=== PATIENT | male | born 1970 | race African-American/Black ===

== ENCOUNTER → 2016-11-07 | Day surgery (SDC) | payer OTHER ==
[2016-11-02 15:19] VITALS: Ht 175.3 cm; Wt 135.0 kg
[~2016-11-07] VITALS: Ht 175.3 cm; Wt 135.0 kg
[~2016-11-07] MED LIST: ASPI81TA28 PO; ENAL1TAB31 PO; HYDR25TA4 PO; LIDO 2%/EPINEPHRINE 1:100000 20 ML VIAL INFIL ONE; METO25TA56 PO; POTA20TA16 PO; PRAV20TA PO; SODIUM BICARBONATE 4.2% INJ 10 ML SYR IV ONE; TETRACAINE HCL (OPHTH) 60 DROPS/4 ML BTL OP ONE; TOBRAMYCIN/DEXAMETHASONE OPH OINT 3.5 GM TUBE TOP ONE; TRMCR130WC TOP; VERA240T20 PO
--- NOTE | 2016-11-07 11:51 | History and Physical: Surg Cnt ---
History & Physical Date Nov 07, 2016. Chief Complaint eyelid cyst, left eye History of Present Illness The patient is a 46 year old male with complaints of cyst of left eyelid. Past Medical/Surgical History hypertension, back pain, high cholesterol Additional History Hepatic Disease: No Endocrine Disorder: No Kidney Disease: No Hypertension: Yes Heart Disease: No Bleeding Tendencies: No Infectious Diseases: No Allergies Coded Allergies: No Known Allergies (Unverified , 11/02/16) Home Medications Scheduled Aspirin (Aspirin Ec), 81 MG PO QAM Enalapril Maleate (Vasotec), 1 TAB PO BID Hydrochlorothiazide (Hctz), 25 MG PO QAM Metoprolol Tartrate (Lopressor) (Lopressor), 25 MG PO BID Potassium Ext Rel (Klor-Con), 20 MEQ PO QAM Pravastatin (Pravachol ), 20 MG PO HS Triamcinolone Acet (Aristocort 0.1%), 1 APPL TOP BID Verapamil Sust Rel (Calan Sr Ext Rel), 240 MG PO BID Physical Examination Skin: warm/dry, no rash Eyes: normal inspection, EOMI, sclerae normal ENT: normal ENT inspection, pharynx normal Head: normocephalic, atraumatic Neck: supple, no adenopathy, trachea midline Respiratory/Chest: lungs clear, normal breath sounds, no respiratory distress Cardiovascular: regular rate, rhythm, no edema, no murmur Abdomen / GI: normal bowel sounds, non tender Back: normal inspection Extremities: normal inspection, normal range of motion Neurologic/Psych: no motor/sensory deficits, alert, normal reflexes, oriented x 3 Diagnosis Cyst of left eyelid ASA Classification: ASA Class II Plan of Treatment Stable to proceed with excision of cyst, left lower lid and medial canthus.
--- NOTE | 2016-11-07 12:13 | Discharge Instructions-SurgCtr ---
Discharge Instructions Visit Reason for Visit: Left Lid Cyst Discharge Discharge Diagnosis / Problem: cyst of eyelid Discharge Goals Goal(s): Decrease discomfort Activity Recommendations Activity Limitations: resume your previous activity Anesthesia . Post Anesthesia Instructions: If you have had General Anesthesia or IV Sedation: * Do not drive today. * Resume driving when surgeon permits. * Do not make important decisions or sign legal documents today. * Call surgeon for: 1. Temperature elevations greater than 101 degrees F. 2. Uncontrollable pain. 3. Excessive bleeding. 4. Persistent nausea and vomiting. 5. Medication intolerance (nausea, vomiting or rash). * For nausea and vomiting use only clear liquids such as: tea, soda, bouillon until nausea subsides, then gradually increase diet as tolerated. * If you have any concerns or questions, call your surgeon's office. If physician is unavailable and it is an emergency, call 911 or go to the nearest emergency room. . Instructions / Follow-Up Instructions / Follow-Up ACTIVITY RECOMMENDATIONS: * No limitations RETURN TO SCHOOL/WORK: * No limitations DIET: * No limitations (Resume previous diet) SPECIAL CARE INSTRUCTIONS: Call your doctor at with any concerns or problems. FOLLOW UP VISIT: Follow-up with Dr Pardo as needed. . Diet Recommendations Home Diet: resume previous diet Pending Studies Studies pending at discharge: no Medical Emergencies . Who to Call and When: Medical Emergencies: If at any time you feel your situation is an emergency, please call 911 immediately. . Non-Emergent Contact Non-Emergency issues call your: [employer] Machine Setter . . "Provider Documentation" section prepared by Deshawn Pardo.
[2016-11-07 12:15] VITALS: TEMP 36.9
--- NOTE | 2016-11-07 12:15 | [facility] Operative Report ---
Operative Report Diagnosis: 2 cysts of left lower lid (3mm and 5mm) , one cyst of left upper lid (4mm) Procedure: excision of above described cysts Complications: none I attest to the content of the Intraoperative Record and any orders documented therein. Any exceptions are noted below.
[2016-11-07 12:24] VITALS: BP 140/88; PULSE 55; O2SAT 99
== END | disposition home or self-care (01) ==
LOC: X.SURG 10:49
PROVIDERS: ATTEND Ophthalmology
DX: H02.825 Cysts of left lower eyelid (principal); H02.824 Cysts of left upper eyelid; I10 Essential (primary) hypertension; E78.00 Pure hypercholesterolemia, unspecified; Z79.899 Other long term (current) drug therapy

== ENCOUNTER 2024-03-04 05:46 | Observation (INO) ==
--- NOTE | 2024-03-03 09:34 | Anesthesiology Consultation ---
Date of Service March 03, 2024 Assessment & Plan (1) Encounter for pre-operative examination: Chart Review Chart Review: Acceptable Risk for Surgery (pending anesthesia review of unconfirmed EKG DOS ) and Patient NOT seen in Pre Admission Testing -Infectious Disease screening: Per PAT nursing assessment on 02/13/24. Patient resides at [facility]. No known infectious disease contacts in past 10 days or current infectious disease symptoms. No recent travel outside the country. Preop Covid testing 02/28/24= negative. Covid test will be 5 days old by DOS- Minor test ordered for DOS History Surgery Operation Date: 03/04/24 07:00 Proposed Procedures p Right Knee Arthroscopy, Chondroplasty, Partial Lateral Meniscus Removal - Triston Muñoz MD Height/Weight Height: 5 ft 9 in Weight: 148.778 kg Allergies Allergy/AdvReac Type Severity Reaction Status Date / Time No Known Allergies Allergy Unverified 02/13/24 14:44 Medications Home Medications Medication Instructions Recorded Confirmed Last Taken aspirin 81 mg capsule 81 mg PO QAM 02/13/24 02/13/24 Unknown atorvastatin 20 mg tablet 20 mg PO PM 02/13/24 02/13/24 Unknown calcium polycarbophil 625 mg 1,250 mg PO QAM 02/13/24 02/13/24 Unknown tablet (Fiber-Lax) lisinopril 20 1 tab PO QAM 02/13/24 02/13/24 Unknown mg-hydrochlorothiazide 25 mg tablet potassium chloride 20 mEq 20 meq PO QAM 02/13/24 02/13/24 Unknown tablet,extended release(part/cryst) verapamil 240 mg tablet,extended 240 mg PO BID 02/13/24 02/13/24 Unknown release Past Medical History Medical History (Updated 03/03/24 @ 09:36 by Evie Law PA-C) Hyperlipidemia Hypertension Inmate in correctional facility [facility] Medical history unknown unable to view history in paperwork sent from [facility] due to poor quality, see scanned in reports ALISON (obstructive sleep apnea) Per records Past Surgical History Surgical History Surgical history unknown unable to view history in paperwork sent from [facility] due to poor quality, see scanned in reports Social History Smoking Status: Unknown if ever smoked Testing Laboratory Results 02/28/24= WBC: 7.23 H/H: 16.7/49.9 PLATELETS: 274 SODIUM: 141 POTASSIUM: 4.0 CHLORIDE: 105 CO2: 27 BUN: 13 CREATININE: 0.92 GLUCOSE: 117 Electrocardiogram Date: 02/27/24 Findings: + SB @ (57bpm) Nonspecific T wave abnormality unconfirmed - will need reviewed by anesthesiologist DOS Chest X-Ray Date: 02/27/24 Findings: + NAD and + cardiomegaly
[2024-03-04] MEDS: LR 15ML/HR IV SCH (06:13)
[2024-03-04] MEDS: LACTATED RINGER'S 1,000 ML IV SCH (06:24)
[2024-03-04] MEDS ORDERED: PROMETHAZINE HCL 6.25 MG in SODIUM CHLORIDE 0.9% 50 ML IV PRN (06:28)
[2024-03-04] MEDS ORDERED: ePHEDrine sulfate 50 MG/ML AMP IV PRN (06:28)
[2024-03-04] MEDS ORDERED: ONDANSETRON INJ 2 MG/ML 2 ML VIAL IV PRN (06:28)
[2024-03-04] MEDS ORDERED: ATROPINE SULFATE 0.1 MG/ML 10ML SYR IV PRN (06:28)
[2024-03-04] MEDS ORDERED: NALOXONE HCL 0.4 MG/1 ML VIAL/CARP IV PRN ×2 (06:28→11:35)
[2024-03-04] MEDS ORDERED: FLUMAZENIL 0.1 MG/1 ML 10 ML VIAL IV PRN (06:28)
[2024-03-04] MEDS ORDERED: LABETALOL HCL IV 5 MG/ML 20ML IV PRN (06:28)
[2024-03-04] MEDS ORDERED: SUCCINYLCHOLINE CHLORIDE 20 MG/ML 10 ML VIAL IV ONE (06:34)
[2024-03-04] MEDS ORDERED: ROCURONIUM BROMIDE 10 MG/ML 5 ML VIAL IV ONE (06:34)
[2024-03-04] MEDS ORDERED: fentaNYL citrate PF 100 MCG/2 ML VIAL ONE (06:34)
[2024-03-04] MEDS ORDERED: LIDOCAINE 2% 2 ML VIAL/AMP(20MG/ML) INFIL ONE (06:34)
[2024-03-04] MEDS ORDERED: PROPOFOL IV EMULSION 10 MG/ML 20 ML VIAL IV ONE ×3 (06:34→08:55)
[2024-03-04] MEDS ORDERED: ONDANSETRON INJ 2 MG/ML 2 ML VIAL ONE (06:34)
[2024-03-04] MEDS ORDERED: MIDAZOLAM HCL 1 MG/ML 2ML VIAL ONE (06:34)
--- NOTE | 2024-03-04 07:02 | History & Physical Bridge Note ---
Date of Service March 04, 2024 History & Physical Bridge Note I have examined the patient, reviewed the History & Physical and in the interval since the performance of the History & Physical I have noted the following changes of clinical significance: no changes noted
[2024-03-04] MEDS: ceFAZolin 3000MG 3,000 MG/72.5 ML BAG IV SCH (07:05)
[2024-03-04] MEDS ORDERED: GLYCOPYRROLATE 0.2 MG/ML VIAL ONE (07:54)
[2024-03-04] MEDS: LIDOCAINE 1%/EPINEPHRINE 1:100,000 20 ML VIAL ONE (07:56)
[2024-03-04] MEDS ORDERED: SUGAMMADEX SODIUM 200 MG/2 ML VIAL IV ONE (08:51)
[2024-03-04] MEDS: EpINEphrine HCL INJ 1 MG/ML 1ML SYRINGE IR ONE (08:55)
--- NOTE | 2024-03-04 09:14 | Operative Report ---
Post Operative Report Pre & Post Diagnosis Operation Date: 03/04/24 07:00 Pre-Op Diagnosis: Tear of Lateral Meniscus, Right Knee Post-Op Diagnosis: Tear of Lateral Meniscus, Right Knee I identified the patient and participated in the time-out.: Yes Procedure Operation Date: 03/04/24 07:00 Actual Procedures p Right Knee Arthroscopy, Chondroplasty, Partial Lateral Meniscus Removal, Bone Spur Excision(Right) - Triston Muñoz MD Surgeon Triston Muñoz M.D. Portrait Painter Domenica Marie PA-C; no fellow or resident available Estimated Blood Loss 5 Findings Consistent with Post-Op Diagnosis Specimens None Anesthesia Type General Description of Procedure Patient was taken to the operating room, placed under general anesthesia. Time out performed, prepped and draped in routine sterile fashion. He was given 3 gm IV Ancef for surgical prophylaxis. I was present for the entire case, please see Dr. Muñoz's operative report for further detail. Patient was awakened and taken to the operating room in stable condition. I attest to the content of the Intraoperative Record and any orders documented therein. Any exceptions are noted below.
[2024-03-04] MEDS: fentaNYL citrate PF 100 MCG/2 ML VIAL IV PRN (09:17)
--- NOTE | 2024-03-04 09:19 | Operative Report ---
Post Operative Report Pre & Post Diagnosis Operation Date: 03/04/24 07:00 Pre-Op Diagnosis: Tear of Lateral Meniscus, Right Knee Post-Op Diagnosis: Tear of Lateral Meniscus, Grade 4 chondrosis lateral tibial plateau, grade 2 and 3 chondrosis lateral femoral condyle. Osteophytosis. Synovitis. Medial femoral condyle chondromalacia. Grade 2Right Knee I identified the patient and participated in the time-out.: Yes Procedure Operation Date: 03/04/24 07:00 Actual Procedures p Right Knee Arthroscopy, Chondroplasty, Partial Lateral Meniscus Removal, Bone Spur Excision(Right) - Triston Muñoz MD Surgeon Triston Muñoz MD Machine Cementer Domenica Marie no resident or fellow available Estimated Blood Loss 5 Findings Consistent with Post-Op Diagnosis Specimens None Anesthesia Type General Regional Complications none Disposition Accompanied Patient To Recovery: No Disposition: Recovery Room Indications Patient is 53 years old and has right knee pain. He has a torn lateral meniscus with some lateral compartment chondromalacia. He is incarcerated. Treatment options were discussed and we agreed to proceed with a knee arthroscopy and debridement. Description of Procedure Informed consent obtained. Patient identified. He identified the operative site as the right knee. I marked with my initials. A preoperative surgical timeout performed. Preop dose of IV antibiotics given. Taken to the OR positioned supine on the OR table. No tourniquet. A lateral post was used for stressing the knee. A bump under the right hip. Impulse foot pumps on the nonoperative leg. Postop early mobility mechanical devices and Eliquis. The exam under anesthesia revealed range of motion 0/5/125 with intact Romeo and posterior drawer small effusion. Varus valgus laxity at 0 degrees was absent. There was 1+ LCL laxity at 20 degrees knee flexion. Bony prominences inspected and padded. Inferolateral viewing portal superior lateral outflow portal and inferomedial working portals were established. Diagnostic arthroscopy was performed. Mild synovitis in the suprapatellar pouch which was debrided. The central portion of the trochlea showed grade 1 chondrosis. There was grade 2 or 3 chondrosis of the inferomedial patellar facet. There was grade 2 chondrosis of the median ridge of the patella which was debrided. Approximately 1 to 1-1/2 cm in diameter far both areas. The medial lateral gutters were unremarkable. Popliteal hiatus intact. The retropatellar fat pad was resected. There was a large lateral notch osteophyte which was eventually debrided. This caused impingement. Care was taken to preserve the cruciate ligaments which were intact. There was also a large medial tibial spine osteophyte. This went from the medial compartment and actually over top of the ACL. This had a lip anteriorly and in combination with the notch osteophyte appeared to limit extension. I carefully used the shaver and bur to debride this osteophyte preserving the ACL as well as the anterior horn of the medial meniscus. Impingement was relieved and possibly extension improved. Osteophyte was large enough that it would precluded access to the medial compartment. The medial compartment was entered. The meniscal roots were intact the medial meniscus was intact and stable to probing. The medial tibial plateau appeared normal. There was a small area of grade 2 chondrosis of the medial femoral condyle which was about 1 cm wide and 1-1/2 cm long. Chondroplasty performed. The posterior medial compartment was accessed and there were no loose bodies. There was a flap of the medial meniscus which was insignificant and the medial meniscal root was intact. Posterior lateral compartment unremarkable. The posterior horn of the lateral meniscus was intact. Adjacent to the lateral tibial spine was a incarcerated ossicle which was debrided. Popliteal hiatus normal. The posterior portion of the lateral meniscus out to just in front of the popliteal hiatus appeared normal. There was grade 2 chondrosis of an area approximately 2-1/2 x 2-1/2 cm of the lateral portion of the lateral femoral condyle. Otherwise intact cartilage. On the tibial plateau there was an area posteriorly were there appeared to be an intralesional osteophyte 5 mm x 1 cm. The anterolateral portion of the tibial plateau for diameter of 2.5 to 3 cm was essentially grade 4 chondrosis. There was a macerated tear of the anterior horn of the lateral meniscus which was debrided with basket forceps and motorized shaver. The shaver was run through the knee to pick and shovel man debris. The arthroscopic instruments were removed. The portals were closed with 4-0 nylon. In order to protect the anterior horn of the medial meniscus I made an accessory medial po rtal and inserted a probe to retract the meniscus out of the way when debriding the medial tibial spine osteophyte. A saw sterile dressing was applied Xeroform 4 x 4's ABD soft wrap Joe wrap. Patient was awakened from anesthesia without difficulty and taken to the recovery room in stable condition. There were no specimens or complications counts were correct blood loss is estimated to be 5 cc. No no one was available to speak to at the conclusion of the procedure. Patient is incarcerated. Plan is to admit to the hospital overnight. Start Eliquis tomorrow morning. He may weight-bear as tolerated with crutches. Pain control. PT and OT. Arthroscopic partial meniscectomy protocol. Debridement of the osteophytes relieve impingement and may have improved extension. I attest to the content of the Intraoperative Record and any orders documented therein. Any exceptions are noted below.
[2024-03-04] MEDS: HYDROmorphone INJ 1 MG/ML SYRINGE IV PRN (09:40)
--- NOTE | 2024-03-04 10:21 | Anesthesiology Progress Note ---
Date of Service March 04, 2024 Anesthesia Post Procedure Vital Signs Vital Signs: Temp Pulse Pulse Resp BP BP Pulse Ox 03/04/24 10:10 74 19 150/82 H 98 03/04/24 10:00 36.2 C L 71 19 150/84 H 98 03/04/24 09:50 72 19 145/85 H 98 03/04/24 09:40 75 20 161/87 H 96 03/04/24 09:30 73 20 142/83 H 97 03/04/24 09:20 82 19 154/91 H 99 03/04/24 09:14 36.0 C L 82 17 138/89 98 03/04/24 06:12 36.7 C 59 L 20 156/102 H 94 O2 Del Method O2 Flow Rate 03/04/24 10:10 Nasal Cannula 2 03/04/24 10:00 Nasal Cannula 2 03/04/24 09:50 Nasal Cannula 2 03/04/24 09:40 Nasal Cannula 2 03/04/24 09:30 Nasal Cannula 2 03/04/24 09:20 Oxymask 5 03/04/24 09:14 Oxymask 5 03/04/24 06:12 Room Air Pain Intensity Right Knee: Pain Intensity: 6 Transfer of Care Handoff Completed per policy Notes Mental Status: alert / awake / arousable Patient Amnestic to Procedure: Yes Nausea / Vomiting: adequately controlled Pain: adequately controlled Airway Patency, RR, SpO2: stable & adequate BP & HR: stable & adequate Hydration State: stable & adequate Anesthetic Complications: no major complications apparent
[2024-03-04] MEDS: ONDANSETRON INJ 2 MG/ML 2 ML VIAL IV PRN (11:05)
[2024-03-04] MEDS ORDERED: TAMSULOSIN HCL 0.4 MG CAP PO PRN (11:35)
[2024-03-04] MEDS ORDERED: HYDROmorphone INJ 1 MG/ML SYRINGE IV PRN (11:35)
[2024-03-04] MEDS ORDERED: diphenhydrAMINE 50 MG/ML VIAL IV PRN (11:35)
[2024-03-04] MEDS ORDERED: MAGNESIUM HYDROXIDE SUSP 30 ML UDC PO PRN (11:35)
[2024-03-04] MEDS ORDERED: CALCIUM POLYCARBOPHIL 625MG TAB PO PRN (11:35)
[2024-03-04] MEDS ORDERED: HYDROmorphone INJ 0.5 MG/0.5 ML SYR IV PRN (11:35)
[2024-03-04] MEDS ORDERED: hydrALAZINE HCL 20 MG/ML VIAL IV PRN (11:35)
[2024-03-04] MEDS ORDERED: bisacodyL 10 MG SUPP PR PRN (11:35)
[2024-03-04] MEDS: ONDANSETRON INJ 2 MG/ML 2 ML VIAL ONE (11:39)
[2024-03-04] MEDS: SODIUM CHLORIDE 0.9% 1,000 ML IV SCH (11:59)
[2024-03-04] MEDS: KETOROLAC 30 MG/ML VIAL IV SCH (12:07)
[2024-03-04] MEDS: METOCLOPRAMIDE HCL INJ 5 MG/ML 2 ML VIAL IV PRN (14:19)
[2024-03-04] MEDS: ceFAZolin 2000MG 2,000 MG/15 ML SYR IV SCH (14:27)
[2024-03-04] MEDS: ACETAMINOPHEN 500 MG TAB PO SCH (14:27)
--- OUTSIDE RECORDS SUMMARY | 2024-03-04 14:59 | External Medical Summary | Continuity of Care Document ---
Author Name Unknown Organization [facility] [address] [id number] Address [address] [place] [id number] Care Team Providers Care Messenger Floorperson Name Role Phone Ward Talavera Primary Care Physician [phone] [id number] Date(s): 02/21/24 - 02/21/24 [facility] [address] [id number] [facility] [address] [place] [id number] Encounter Diagnosis Arthrosis of knee(Discharge Diagnosis) - 02/21/24 Complex tear of lateral meniscus, current injury, right knee, initial encounter (Discharge Diagnosis) - 02/21/24 Preop testing(Discharge Diagnosis) - 02/22/24 Discharge Disposition: Home or Self Care Attending Physician: STEPAN Marie, Domenica Villatoro Referring Physician: MD Wanda, Triston Sheikh Allergies, Adverse Reactions, Alerts No Known Medication Allergies Medications ammonium lactate 12% topical cream Start: 08/07/23 10:59:00 EDT Start Date: 08/07/23 Status: Ordered aspirin 81 mg oral capsule Start: 08/07/23 10:59:00 EDT Start Date: 08/07/23 Status: Ordered atenolol Start: 08/07/23 11:00:00 EDT Start Date: 08/07/23 Status: Ordered atorvastatin 20 mg oral tablet Start: 08/07/23 11:00:00 EDT Start Date: 08/07/23 Status: Ordered FiberCon Start: 08/07/23 11:01:00 EDT Start Date: 08/07/23 Status: Ordered hydroCHLOROthiazide-lisinopril 25 mg-20 mg oral tablet Start: 08/07/23 10:59:00 EDT, 2 tab, PO, Daily Start Date: 08/07/23 Status: Ordered triamcinolone 0.025% topical cream Start: 08/07/23 10:58:00 EDT, 1 appl, topical, bid Start Date: 08/07/23 Status: Ordered verapamil Start: 08/07/23 11:01:00 EDT Start Date: 08/07/23 Status: Ordered Mental Status 02/21/24 Barriers to Learning one year None evide nt Mandatory Health Literacy Documentation Yes Health Literacy Communication Barriers N ever Primary Language Sammarinese Problem List Condition Confirmation Course Effective Dates Status Health St atus Informant Arthrosis of knee Confirmed Active Lateral meniscal tear Confirmed Active Diagnosis Diagnosis Type Effective Dates Health Status Cl inical Service Informant Complex tear of lateral meniscus, current injury, right knee, initial encounter Discharge Diagnosis 02/21/24 Arthrosis of knee Discharge Diagnosis 02/21/24 Preop testing Discharge Diagnosis 02/22/24 Non-Specified Vital Signs Most recent to oldest [Reference Range]: 1 Height 177 cm (02/21/24 2:02 PM) Patient Weight 152 kg (02/21/24 2:02 PM) Body Mass Index 48.52 kg/m2 (02/21/24 2:02 PM) Temperature [36.5-37.9 DegC] 36.3 DegC *LOW* (02/21/24 2:02 PM) Respiratory Rate 20 br/min (02/21/24 2:02 PM) Blood Pressure 124/84mmHg (02/21/24 2:02 PM) Cuff Pulse Pressure 40 mmHg (02/21/24 2:02 PM) Social History Social History Type Response Smoking Status Never smoked cigaret baljeet Sex Male Pre-OP H & P * STEPAN Boothe Cory D: PERFORM, MODIFY Event Display: Pre-OP H & P Authored Date: PRE-OPERATIVE HISTORY AND PHYSICAL Name: GARY AMARO Patient Number: [id number] : 1970 Date of Service: 02/21/2024 PRE-OP Diagnosis: Right knee DJD, lateral meniscal tear Planned Procedure: Right knee arthroscopy, chondroplasty, and partial lateral meniscectomy Chief Complaint: Right knee pain History of Present Illness (including history relevant to procedure): This 53-year-old male presents today for his preoperative history and physical. He is scheduled to undergo a right knee arthroscopy, chondroplasty, and partial lateral meniscectomy on 03/04/2024. The patient has had right knee pain for the last 3 to 4 years. Symptoms started after walking in the exercise yard and stepping in a small ditch, twisting his knee. Pain has persisted with any rotation or uneven ground. He denies any catching or locking. No buckling. No numbness or tingling. Intermittent knee effusions. He has triedactivity modification, physical therapy, OTC medications, and knee aspiration, without lasting improvement. He now elects to proceed with surgical intervention in hopes of improving his pain and function. Preoperative imaging has been obtained. Review Of Systems: A total of 10 systems were reviewed and are significant only for below stated conditions Family history: Noncontributory. Parents are living. Social history: The patient is currently incarcerated. No tobacco use, no EtOH use. No drug use. Past Medical History: Problems: Lateral meniscal tear Arthrosis of knee Obesity Sleep apnea Elevated cholesterol Hypertension Low back pain Procedure History Procedure Procedure Date Comments Herniorrhaphy Allergies and Sensitivities: No Known Medication Allergies Current Home Meds: (Last Updated 02/20 14:02) ammonium lactate topical (ammonium lactate 12% topical cream) aspirin (aspirin 81 mg oral capsule) atenolol atorvastatin (atorvastatin 20 mg oral tablet) hydroCHLOROthiazide-lisinopril (hydroCHLOROthiazide-lisinopril 25 mg-20 mg oral tablet) 2 tab PO Daily polycarbophil (FiberCon) triamcinolone topical (triamcinolone 0.025% topical cream) 1 appl topical bid verapamil Vitals: Last Updated 02/21/24 14:02 Weights: Last Updated 02/21/24 14:02 Date Temp Pulse BP RR SpO2 FIO2 Date Wt(kg) Wt(lb) 02/20 14: 36.3 124/84 20 94 02/20 14: 152.0 334 02/20 14: 152.0 334 24 Hr Tmax: 36.3 at 02/20 14:02 Initial Wt: 02/20 152.0 kg 334 lb Physical Exam: (relevant to the procedure, including heart and lung evaluation) General: Well-developed, well-nourished, large male, in no acute distress. Sitting in a chair. Alert and oriented. HEENT: Normocephalic, atraumatic. Eyes PERRLA, EOMI. Nares patent bilaterally without nasal drainage. Oropharynx with moist oral mucosa. Good dentition with dental fillings and caps. Good airway. Neck: No JVD. Cardiac: RRR. No MGR. Peripheral pulses are 2+. He does have generalized peripheral edema in the legs. Lungs: Clear to auscultation bilaterally. No crackles, rhonchi, or wheezing. Good air movement. Abdomen: Obese. Bowel sounds present x 4. Soft nontender. No organomegaly. No masses. Extremities: Right knee evaluation reveals no obvious asymmetry or deformity. He has full terminal extension. Flexion to greater than 100 degrees. Strength is 5/5 with excellent quad tone. There is focal discomfort with palpation over the medial and lateral joint lines. No peripatellar discomfort today. No current palpable crepitus. Stable collateral ligaments. No defect or discomfort with palpation over the patellar tendon or quadriceps tendon. There is medial and lateral joint line discomfortwith circumduction testing. Ambulating today with a slow shuffling gait secondary to ankle cuffs. Neuro: Gross sensation is intact across the upper and lower extremities by soft touch. Skin: _Warm and dry with good turgor. No rashes. No ecchymosis or erythema. He does have peripheraledema present in both lower extremities. Studies of radiology results (relevant to the procedure): MRI imaging previously obtained shows intact cruciate and collaterals. Lateral meniscus degenerative tear changes as well as lateral compartment chondrosis were noted. 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 Postoperative prescriptions for Eliquis and [place] will be sent to the community hospital. He will obtain crutches from the community hospital as well. Informed written consent was obtained today. PDMP was checked and there are no concerning findings. He is currently asymptomatic of any COVID-19 symptoms. Preoperative CBC and PRP will be ordered. Postop follow-up appointment for suture removal has been made with Dr. Muñoz for 03/19. He is currently listed as 23-hour observation but may be changed to same-day surgery depending on extent of surgery and start time. This dictation has been completed using [employer] text voice recognition software. Grammatical errors, omissions, insertions, and misspellings may be present due to the limitations of the software. Electronic Signature on File Electronically Reviewed/Signed by: Alexander Boothe PA-C Author Signature Dt/Tm:02/21/2024 05:23 PM Division of Sports Medicine Electronically Reviewed/Signed by: Triston Muñoz MD Cosigner Signature Dt/Tm: 02/21/2024 05:25 PM Division of Sports Medicine CDS Patient Care team information Care Team Personnel Name: MD Ilan, Ward Escudero Position: Referring Member Role: Primary Care Provider Address: Address: [address] [place] [address]
--- OUTSIDE RECORDS SUMMARY | 2024-03-04 15:00 | External Medical Summary | Continuity of Care Document ---
Author Name Unknown Organization [facility] [address] [id number] Address [address] [place] [address] [phone] Care Team Providers Care Tire Mold Tester Name Role Phone Ward Talavera Primary Care Physician [phone] [id number] Date(s): 10/29/23 - 10/29/23 [facility] [address] [id number] [address] [address] Encounter Diagnosis Lateral meniscal tear(Discharge Diagnosis) - 10/29/23 Arthrosis of knee(Discharge Diagnosis) - 10/29/23 Discharge Disposition: Home or Self Care Attending Physician: MD Wanda, Triston Sheikh Referring Physician: DO De Souza Andrew J Allergies, Adverse Reactions, Alerts No Known Medication [...] Start Date: 08/07/23 Status: Ordered Mental Status 10/29/23 Barriers to Learning one year None evide nt Mandatory Health Literacy Documentation Yes Health Literacy Communication Barriers N ever Primary Language Northern Irish Problem List Condition Confirmation Course Effective Dates Status Health St atus Informant Arthrosis of knee Confirmed Active Lateral meniscal tear Confirmed Active Diagnosis Diagnosis Type Effective Dates Health Status Cl inical Service Informant Lateral meniscal tear Discharge Diagnosis 10/29/23 Arthrosis of knee Discharge Diagnosis 10/29/23 Social History Social History Type Response Smoking Status Never smoked cigaret baljeet Sex Male Ortho Outpt Note * Gamaliel aLrkin: PERFORM, MODIFY, MODIFY, MODIFY MD Wanda, Triston Sheikh: MODIFY Event Display: Ortho Outpt Note Authored Date: [id number] Name:GARY AMARO Patient Number:[id number] :[id number] Date of Service:10/29/2023 Chief Complaint 2.5 month follow up for right knee pain History of Present Illness This is a 53-year-old male who is coming in for follow up for right knee pain. He was in prisonwhenhis initial injury occurred 3 years ago, whenhe missed stepped on some uneven floorsand felt a pop in his right knee. Hedid not notice any immediate swelling or bruising but later that nighthad some pain. Since them he has had pain and stiffness along the anterior medial and lateral a spects of his knee. He does not currently take any medications for itabout a year ago had a fewphysical therapy sessions related some stretching. Does not have any numbness or tingling of the right knee. He was wearing an Joe bandage for but not wearing a brace right now. Had an MRI donein May 2023. He had a cortisone injection at his last appointment with drainage of 15cc ofblood tinged fluidon 08/07/2023. Relief from this injection was limitedto a few weeks. Physical Exam Vitals & Measurements HT:177cm WT:152kg WT:152.000kg(Dosing) BMI:48.52 Focusing on the patient's RIGHT knee: Patient hastrace swellingalong the aspect of theright kneeno erythema or gross deformity, chronic skin changes b/lwith +1 tibial edema. No open wounds DP nonpalpable & PT 1+ Valgus alignment of both knees 5/5 Strength His range of motion is 0/5/110 Painless hip movement. Ligamentous exam stablecruciates and collaterals Tender to palpation along the anterioraspect of his knee as well as the lateralmore so than andmedial joint line. Negative Lachmannegative posterior and anterior drawer test with firm endpoints Flexion circumduction test causes pain on both sides of his knee. Diagnostic Results 4 views of the right knee from 08/07/2023 reviewed by me shows Eyota Schlatter ossification of right knee, medial and lateral joint space narrowing b/l, no signs of fracture, arthritics changes around femoral condyle MRI of Right Knee: intact ACL PCL LCL and MCL, degeneration of lateral meniscusand lateral compartment chondrosis Assessment/Plan IMPRESSION: Right knee pain secondary to lateral meniscus tear and lateral compartment chondrosis PLAN: Discussed ORTIZ injections versus Meniscus debridement surgery. The patient has elected to proceed with surgical interventionat this time for chondroplasty and partial lateral meniscus removal. Patient was educated about surgical procedure, and treatment options were discussed, as well as risks, benefits and the recovery process. The patient hasno issues withbleeding, blood clots, staph infections or MRSA. No metal allergy. Informed consent was obtained, and the patient signed a consent form. RICE, knee brace. Follow up for preoperative appointments as needed. Attestation I, Gamaliel Larkin, have scribed for, and in the presence of, Triston Muñoz, on this date,10/29/2023 15:29:05. Electronic Signature on File Electronically Reviewed/Signed by: Gamaliel Larkin Author Signature Dt/Tm:10/29/2023 03:54 PM Electronically Reviewed/Signed by: Triston Muñoz MD Cosigner Signature Dt/Tm: 10/30/2023 09:45 AM Division of Sports Medicine [facility] Patient Care team information Care Team Personnel Name: MD Talavera Vernon H Position: Referring Member Role: Primary Care Provider Address: Address: [address] [place] [address]
[2024-03-04] MEDS: ATORVASTATIN 20 MG TAB PO SCH (21:37)
[2024-03-04] MEDS: VERAPAMIL HCL 240 MG TABCR PO SCH (21:38)
[2024-03-05] MEDS: oxyCODONE HCL IR 5 MG TAB (IMMEDIATE RELEASE) PO PRN (07:49)
[2024-03-05] MEDS: APIXABAN 2.5 MG TAB PO SCH (08:42)
[2024-03-05] MEDS: POTASSIUM CHLORIDE CRTAB 20 MEQ TABCR PO SCH (08:43)
[2024-03-05] MEDS: LISINOPRIL/HCTZ 20/25MG 1 TAB PO SCH (08:43)
[2024-03-05] MEDS: ASPIRIN 81 MG ECTAB PO SCH (08:43)
[2024-03-05] MEDS: MULTIVITAMIN TAB PO SCH (08:44)
--- NOTE | 2024-03-05 09:05 | Orthopedic Progress Note ---
Date of Service March 05, 2024 Assessment & Plan (1) Arthritis of knee, right: Plan: Surgical findings discussed. Doing well. Will see PT and OT this morning. He may weight-bear as tolerated with crutches or walker. I reviewed the plan with him. Elevate ice. Pain medication. He will be on a blood thinner plus his regular meds. Dressing changes and wound care discussed. He should go to the [facility]. If doing well after rehab today will discharge back to his facility and follow-up with me in 2 weeks as scheduled. Exercises reviewed. (2) Lateral meniscal tear: Admission and Anticipated Discharge Date Admission Date: March 04, 2024 Subjective No problems reported. No difficulties breathing. Pain is well-controlled. Physical Exam Physical Exam: DP and PT pulses are trace. Foot is warm. Sensation intact. 5 out of 5 stre ngth to plantarflexion dorsiflexion inversion and eversion. Knee range of motion is approximately 0/10/60 with an intact active straight leg raise. The dressing is clean and dry. Results & Data Vital Signs (Past 12 Hours) Vital Signs Temp Pulse Resp BP BP Pulse Ox O2 Del Method 03/05/24 07:27 36.9 C 74 16 117/69 93 Room Air 03/05/24 03:03 36.9 C 75 16 130/79 95 Room Air 03/04/24 23:17 36.9 C 90 16 127/82 95 Room Air
--- NOTE | 2024-03-05 11:21 | Discharge Summary ---
Date of Service March 05, 2024 Discharge Data Procedures Performed Operation Date: 03/04/24 07:00 Actual Procedures p Right Knee Arthroscopy, Chondroplasty, Partial Lateral Meniscus Removal, Bone Spur Excision(Right) - Triston Muñoz MD Hospital Course (1) Lateral meniscal tear: Patient was kept in observation at [facility] after undergoing an elective right knee arthroscopy, chondroplasty, lateral meniscectomy with Dr. Muñoz on March 04, 2024. His surgery was performed with general anesthesia. He tolerated the procedure well without any intraoperative complications. Postoperatively he was allowed out of bed, weight-bear as tolerated with the assistance of crutches or walker. He was allowed full range of motion of the right knee. His home medications were continued. He was given a regular diet. He was placed on Eliquis 2.5 mg p.o. twice daily for 2 to 4 weeks after surgery. This was started on postoperative day 1. He was also given CLIFF stockings and A V impulse boots. He was given Tylenol, oxycodone and IV morphine to use as needed for pain. Physical therapy and Occupational Therapy consults were placed. His postoperative dressings were left in place. These can be changed as an outpatient in 4 to 5 days. He may shower but needs to keep the dressing dry. His vital signs remained stable during his inpatient stay. His pain was well-controlled on oral medication. He did well out of bed and was safe in PT and OT. He was discharged back to [facility] on March 05, 2024.
== END 2024-03-05 15:16 ==
LOC: PACUINP 05:46 → ASU 05:46 → 3E 11:25